=== PATIENT | male | born 1945 | race Caucasian/White ===

== ENCOUNTER → 2017-07-19 | Outpatient (CLI) | payer BC ==
[~2017-07-19] MED LIST: ACEASPCAF PO; ASPI81EC PO; ATOR10; Benadryl PO; CALCAVITD PO; CEPH500 PO; DALT10I SQ; GLIM2 PO; Glucosamine Sulfate PO; LANS30EC; MULVITMIND PO; OXYC15ER PO; TRAZ50; Zestril PO
== END ==
LOC: PLD 15:52 → LAB SHORT 15:52
DX: C44.311 Basal cell carcinoma of skin of nose (principal)
CPT/HCPCS: 88305

== ENCOUNTER 2018-03-07 07:19 | Day surgery (SDC) | payer BC ==
[~2018-03-07] VITALS: Ht 175.3 cm; Wt 72.2 kg
[~2018-03-07 07:19] MED LIST changes: -ATOR10; -LANS30EC; -TRAZ50
[2018-03-07] MEDS ORDERED: ATOR10 (08:04)
[2018-03-07] MEDS ORDERED: TRAZ50 (08:05)
[2018-03-07] MEDS ORDERED: LANS30EC (08:05)
== END 2018-03-07 10:01 | disposition home or self-care (01) ==
LOC: ORSCSDS 07:19
PROVIDERS: Internal Medicine Gastroenterology
PROC: 0DBK8ZX Excision of Ascending Colon, Via Natural or Artificial Opening Endoscopic, Diagnostic (ICD-10-PCS; principal; 2018-03-07 08:30)
DX: Z12.11 Encounter for screening for malignant neoplasm of colon (principal); D12.2 Benign neoplasm of ascending colon; K64.8 Other hemorrhoids; D64.9 Anemia, unspecified; Z87.891 Personal history of nicotine dependence; E11.8 Type 2 diabetes mellitus with unspecified complications; I10 Essential (primary) hypertension; E78.5 Hyperlipidemia, unspecified; E03.9 Hypothyroidism, unspecified; Z79.82 Long term (current) use of aspirin; Z79.899 Other long term (current) drug therapy
CPT/HCPCS: 82947; 88305; 93005; 93010; J7120

== ENCOUNTER → 2018-07-26 | Outpatient (CLI) | payer BC ==
[~2018-07-26] MED LIST changes: +ATOR10; +LANS30EC; +TRAZ50
== END | disposition home or self-care (01) ==
LOC: LAB SHORT 08:38 → PLD 08:38
DX: D22.61 Melanocytic nevi of right upper limb, including shoulder (principal); D48.5 Neoplasm of uncertain behavior of skin
CPT/HCPCS: 88305

== ENCOUNTER 2018-11-08 12:38 | Observation (INO) | payer BC ==
[~2018-11-08] VITALS: Ht 172.7 cm; Wt 72.6 kg
[~2018-11-08 12:38] MED LIST changes: -ATOR10; +ATOR10 PO
[2018-11-08 13:23] LABS: BASOPHILS ABSOLUTE AUTO 0.03 K/mm3 (0.00-0.23); BASOPHILS PERCENT AUTO 1 % (0-2); EOSINOPHILS ABSOLUTE AUTO 0.14 K/mm3 (0.00-0.68); EOSINOPHILS PERCENT AUTO 3 % (0-6); IMMATURE GRAN ABSOLUTE AUTO 0.01 K/mm3 (0.00-0.10); IMMATURE GRAN PERCENT AUTO 0 % (0-1); LYMPHOCYTES ABSOLUTE AUTO 1.76 K/mm3 (0.84-5.20); LYMPHOCYTES PERCENT AUTO 37 % (21-46); MONOCYTES ABSOLUTE AUTO 0.32 K/mm3 (0.16-1.47); MONOCYTES PERCENT AUTO 7 % (4-13); Mean Corpuscular HGB 32.3 pg (26.0-34.0); Mean Corpuscular HGB Conc 33.3 g/dL (31.5-36.5); Mean Corpuscular Volume 97 fL (80-100); Mean Platelet Volume 8.9 fL (9.1-12.4); NEUTROPHILS ABSOLUTE AUTO 2.52 K/mm3 (1.96-9.15); NEUTROPHILS PERCENT AUTO 53 % (41-73); Platelet Count 228 K/mm3 (150-400); RDW Coefficient Variation 11.9 % (11.7-14.2); Red Blood Cell Count 4.02 M/mm3 (4.30-5.90); White Blood Cell Count 4.78 K/mm3 (4.00-11.30)
[2018-11-08 13:47] LABS: Alanine Aminotransfer (ALT/SGP 20 U/L (12-78); Albumin, Blood 3.9 g/dL (3.4-5.0); Albumin/Globulin Ratio 1.2 (0.8-1.8); Alk Phos 40 U/L (50-136); Anion Gap 5 mmol/L (6-16); Aspartate Aminotrans (AST/SGOT 17 U/L (12-37); Bilirubin, Total 0.5 mg/dL (0.1-1.0); Blood Urea Nitrogen 16 mg/dL (8-24); Bun/Creatinine Ratio 14.5 (12.0-20.0); CO2, Blood 29 mmol/L (21-32); Calcium, Blood 8.9 mg/dL (8.5-10.1); Chloride, Blood 105 mmol/L (98-108); Globulin, Blood 3.2 g/dL (2.2-4.0); Glomerular Filtration Rate >60 (60-); Glucose, Blood 141 mg/dL (70-99); Potassium, Blood 4.2 mmol/L (3.5-5.5); Sodium, Blood 139 mmol/L (136-145); Total Protein, Blood 7.1 g/dL (6.4-8.2)
[2018-11-08] MEDS ORDERED: OXYB5 PO (15:17)
[2018-11-08] MEDS ORDERED: NORT25 PO (15:18)
[2018-11-08] MEDS ORDERED: Prinivil10 MG PO (16:07)
[2018-11-08] MEDS ORDERED: TEMA7.5 PO (16:07)
[2018-11-08] MEDS ORDERED: CELE100 PO (16:08)
[2018-11-08] MEDS ORDERED: Oxybutynin Chlo10 MG PO (16:30)
[2018-11-08] MEDS ORDERED: TEMA30 PO (16:47)
[2018-11-08] MEDS ORDERED: LO-DOSE ASPIRIN81 MG PO (16:48)
[2018-11-08] MEDS ORDERED: LANS30EC PO ×2 (16:49→20:13)
--- NOTE | 2018-11-08 17:51 | NUR ---
CALLED ED RECIEVED REPORT FROM DREA. PER REPORT PT ADMITTED FOR OBSERVATION. NO CURRENT C/O PAIN. PT HAS HAD CP FOR THE PAST THREE DAYS AND COLLAPSED AT WORK THIS AFTERNOON. AWAITING PT ARRIVAL FOR ASSESSMENT.
[2018-11-08 19:03] LABS: U Amphetamine Screen Not Detected; U Barbituate Screen Not Detected; U Benzodiazapine Screen DETECTED; U Buprenorphine Screen Not Detected; U Cannabinoids Screen Not Detected; U Cocaine Screen Not Detected; U Methadone Screen Not Detected; U Methamphetamine Screen Not Detected; U Opiates Screen Not Detected; U Oxycodone Screen Not Detected; U Phencyclidine Screen Not Detected; U Propoxyphene Screen Not Detected
--- NOTE | 2018-11-08 19:27 | NUR ---
ADMIT NOTE- PT ADMITTED THROUGH THE ED. ARRIVED VIA W/C NO S&S OF DISTRESS. PT ARRIVED AROUND SHIFT CHANGE, CALLED AND REQUESTED TELE BOX. BEDSIDE REPORT COMPLETE WITH NIGHT JASS AWAN
--- NOTE | 2018-11-08 19:59 | NUR ---
PT C/O HEADACHE. NO ORDERS FOR PRN TYLENOL ON EMAR. PLACED CALL TO HOSPITALIST FOR ORDER. KARUNA ORDERS 325 - 650 MG TYLENOL Q6H PRN. WILL ADMINISTER AND REASSESS ORDERED/PER PROTOCOL.
[2018-11-08] MEDS ORDERED: GRAPE SEED PO (20:14)
[2018-11-08] MEDS ORDERED: Amaryl1 MG PO (20:16)
[2018-11-08] MEDS ORDERED: Senna8.6 MG PO (20:16)
[2018-11-08] MEDS ORDERED: TRAZ100 PO (20:17)
[2018-11-08] MEDS ORDERED: CHOL10002 (20:18)
[2018-11-08] MEDS ORDERED: Natural Vita200 UNIT PO (20:19)
--- NOTE | 2018-11-09 07:11 | NUR ---
headache reduced but not eliminated with medication tried other interventions but dull ache remains as it has for some time, call light in reach, saline locked, room air
--- NOTE | 2018-11-09 09:09 | NUR ---
ASSUMED CARE OF PT- CALLED AND SPOKE TO DR HESS, PT ARRIVED ON MEDICAL FLOOR BP 208/133 CONCERNED THIS IS A LITTLE HIGH FOR PERMISSIVE HTN. PLACING NEW ORDERS NOW FOR BP AFFECTING MEDS, LABS AND NEW EKG. PT HAS NO CURRENT C/O PAIN BUT IS MILDLY CONFUSED FROM THE RECENT CVA.
--- NOTE | 2018-11-09 10:57 | NUR ---
CALLED DR HESS- PT C/O HEADACHE UNAFFECTED BY TYLENOL STATES HE TAKES EXCEDRIN MIGRAINE AT HOME FOR THEM WHEN HE GETS THEM. PT STATES LIGHT SENSITIVITY LEFT SIDE OF HIS HAED ABOVE THE LEFT EYE. PT DENIES NAUSEA. NEW ORDER RECIEVED, CALLED PHARMACY FOR MED TO BE SENT. PROVIDED ICE PACK THE PT STATED COLD SEEMS TO HELP WITH THE PAIN. WILL CTM AND MEDICATE WHEN MEDS ARRIVE.
--- NOTE | 2018-11-09 14:11 | NUR ---
Upon receiving a patient request for spiritual care from admission, I visited with patient and , Aye. Patient is in the discharge process and yet welcomed the spiritual care visit. Patient and spouse have a great outlook on life and the difficulties we all face. They showed no spiritual or emotional distress. I listened empathically, reinforced helpful attitudes and practices and normalized patient experience. Patient and Aye responded well.
--- NOTE | 2018-11-09 14:30 | NUR ---
DISCHARGE NOTE- PT DISCHARGED HOME, SPOUSE PRESENT FOR DISCHARGE TEACHING, NO C/O PAIN AT THE TIME OF DISCHARGE. PT WAS GIVEN VERBAL AND WRITTEN DISCHARGE INSTRUCTIONS AND ACKNOWLEDGED UNDERSTANDING OF THEM, QUESTIONS WERE ASKED AND ANSWERED, PT WAS PROVIDED WITH CONTACT INFO IF QUESTIONS SHOULD ARRISE ONCE HE GETS HOME. IV AND TELE DC'D PRIOR TO DISCHARGE, [facility] PLACED HOLTER MONITOR PTIOR TO DISCHARGE.
== END 2018-11-09 14:38 | disposition home or self-care (01) ==
LOC: ER 12:38 → MEDS 12:39
PROVIDERS: Emergency Medicine; ADMIT Hospitalist
DX: R55 Syncope and collapse (principal); R07.89 Other chest pain; E11.9 Type 2 diabetes mellitus without complications; I10 Essential (primary) hypertension; F32.9 Major depressive disorder, single episode, unspecified; K21.9 Gastro-esophageal reflux disease without esophagitis; Z79.899 Other long term (current) drug therapy; Z79.82 Long term (current) use of aspirin; Z87.891 Personal history of nicotine dependence
CPT/HCPCS: 36415; 80053; 82947; 84484; 85025; 93005; 93010; 93225; 93226; 96360; 99285-25; G0378; J7030

== ENCOUNTER 2019-04-16 11:41 | Emergency (ER) | payer MEDICARE ==
[~2019-04-16] VITALS: Ht 175.3 cm; Wt 72.6 kg
[~2019-04-16 11:41] MED LIST changes: +Amaryl1 MG PO; +CELE100 PO; +CHOL10002; +GRAPE SEED PO; +LANS30EC PO; +LO-DOSE ASPIRIN81 MG PO; +NORT25 PO; +Natural Vita200 UNIT PO; +OXYB5 PO; +Oxybutynin Chlo10 MG PO; +Prinivil10 MG PO; +Senna8.6 MG PO; +TEMA30 PO; +TEMA7.5 PO; +TRAZ100 PO
[2019-04-16] MEDS ORDERED: Voltaren100 GM TOP (13:02)
[2019-04-16] MEDS ORDERED: HYDR1TAB94 PO (13:02)
[2019-04-16] MEDS ORDERED: NAPR550 PO (13:02)
== END 2019-04-16 13:11 | disposition home or self-care (01) ==
LOC: ER 11:41
DX: S30.0XXA Contusion of lower back and pelvis, initial encounter (principal); W10.8XXA Fall (on) (from) other stairs and steps, initial encounter; Z79.899 Other long term (current) drug therapy; Z79.82 Long term (current) use of aspirin; E11.9 Type 2 diabetes mellitus without complications; Z87.891 Personal history of nicotine dependence
CPT/HCPCS: 72070; 72100; 73502; 99283-25

== ENCOUNTER 2020-06-02 13:49 | Emergency (ER) | payer MEDICARE ==
[~2020-06-02] VITALS: Ht 172.7 cm; Wt 72.6 kg
[~2020-06-02 13:49] MED LIST changes: +HYDR1TAB94 PO; +NAPR550 PO; +Voltaren100 GM TOP
[2020-06-02 19:01] LABS: Source, Urine Clean Catch
[2020-06-02 19:07] LABS: Appearance, Urine Clear (Clear); Bilirubin, Urine Neg (Neg); Blood, Urine Neg (Neg); Color, Urine Yellow (P-Yellow); Glucose Qualitative, Urine Neg (Neg); Ketones, Urine Neg (Neg); Leukocyte Esterase, Urine 3+ (Neg); Nitrite, Urine Neg (Neg); Protein, Urine Neg (Neg); Specific Gravity, Urine 1.015 (1.003-1.022); Urobilinogen, Urine NORM (Normal)
[2020-06-02 19:17] LABS: Bacteria Mod /hpf; Red Blood Cells, Urine 0-2 /hpf (0-2); Squamous Epithelial Cells Few /hpf (Few)
[2020-06-02] MEDS ORDERED: ZOLOFT100 M3 PO (19:17)
[2020-06-02] MEDS ORDERED: CEPH500 PO (19:26)
== END 2020-06-02 20:15 | disposition home or self-care (01) ==
LOC: ER 13:49
PROVIDERS: Physician Assistant
DX: S09.90XA Unspecified injury of head, initial encounter (principal); N39.0 Urinary tract infection, site not specified; R55 Syncope and collapse; E11.9 Type 2 diabetes mellitus without complications; K21.9 Gastro-esophageal reflux disease without esophagitis; F32.9 Major depressive disorder, single episode, unspecified; Z79.84 Long term (current) use of oral hypoglycemic drugs; Z79.82 Long term (current) use of aspirin; Z79.899 Other long term (current) drug therapy; Z87.891 Personal history of nicotine dependence; W01.10XA Fall on same level from slipping, tripping and stumbling with subsequent striking against unspecified object, initial encounter
CPT/HCPCS: 70450; 81001; 87077; 87086; 87186; 99284-25; A9270-GY

== ENCOUNTER 2022-01-20 10:59 | Day surgery (SDC) | payer MEDICARE ==
[~2022-01-20] VITALS: Ht 175.3 cm; Wt 64.2 kg
[~2022-01-20 10:59] MED LIST changes: +ALPR.25; +ASPI81CH PO; +Azopt10 ML; +CELE200 PO; +NORT10 PO; +PERIDEX15 ML; +REVATIO20 MG; +SERT100 PO; +TERB250; +ZOLOFT100 M3 PO
--- NOTE | 2022-01-20 13:58 | NUR ---
01/20/22 [id number] CARMEN MCGEE LATE ENTRY: DR MENDOZA ORDERED A 12 LEAD EKG DUE TO THE 3 LEAD ECG IN ROOM SHOWING ARTIFACT THAT LOOKED LIKE POSSIBLE ST ELEVATIONS AFER THE FIRST DOSE OF PROPOFOL 40MG HAD BEEN GIVEN. AFTER EKG 12 LEAD CONFIRMED THAT IT WAS SAFE TO PROCEED BY DR MENDOZA, SEDATION STARTED AGAIN. PT HAD LOW BP WITH A MEAN OF 60 AND ABOVE THROUGHOUT. PT IS HISTORICALLY BRADYCARDIC AND MAINTAINED HR AT BASELINE. DR MENDOZA WAS AWARE OF BP AND ORDERED LOW AND SLOW PROPOFOL DOSES WITH CLOSE MONITORING. NO OTHER INTERVENTIONS WERE INDICATED. PT WOKE FROM SEDATION FEELING GREAT, STEADY ON HIS FEET AND VITALS WERE BACK TO BASELINE UPON DC.
== END 2022-01-20 13:40 | disposition home or self-care (01) ==
LOC: ORSCSDS 10:59
PROVIDERS: Internal Medicine Gastroenterology
PROC: 0DJD8ZZ Inspection of Lower Intestinal Tract, Via Natural or Artificial Opening Endoscopic (ICD-10-PCS; principal; 2022-01-20 12:00)
DX: Z12.11 Encounter for screening for malignant neoplasm of colon (principal); K63.5 Polyp of colon; Z86.010 Personal history of colon polyps; K64.8 Other hemorrhoids; K21.9 Gastro-esophageal reflux disease without esophagitis; I10 Essential (primary) hypertension; E11.9 Type 2 diabetes mellitus without complications; E78.5 Hyperlipidemia, unspecified; E55.9 Vitamin D deficiency, unspecified; F32.A Depression, unspecified; Z79.899 Other long term (current) drug therapy
CPT/HCPCS: 82947; 88305; J2704; J7120

== ENCOUNTER 2024-04-29 14:46 | Emergency (ER) | payer OTHER ==
[~2024-04-29] VITALS: Ht 172.7 cm; Wt 63.5 kg
[~2024-04-29 14:46] MED LIST changes: +Alph-E-Mixed400 UNIT PO; +MULTI-VITAMIN1 EAC2 PO; +Prinivil10 MG; +VITAMIN E PO; +Vitamin D1000 UNI1 PO
[2024-04-29 15:15] VITALS: BP 163/70
[2024-04-29 16:38] LABS: BASOPHILS ABSOLUTE AUTO 0.02 K/mm3 (0.00-0.23); BASOPHILS PERCENT AUTO 0 % (0-2); EOSINOPHILS ABSOLUTE AUTO 0.03 K/mm3 (0.00-0.68); EOSINOPHILS PERCENT AUTO 0 % (0-6); Hematocrit 36.9 % (37.0-53.0); Hemoglobin 12.9 g/dL (13.5-17.5); IMMATURE GRAN ABSOLUTE AUTO 0.02 K/mm3 (0.00-0.10); IMMATURE GRAN PERCENT AUTO 0 % (0-1); LYMPHOCYTES ABSOLUTE AUTO 1.64 K/mm3 (0.84-5.20); LYMPHOCYTES PERCENT AUTO 21 % (21-46); MONOCYTES ABSOLUTE AUTO 0.64 K/mm3 (0.16-1.47); MONOCYTES PERCENT AUTO 8 % (4-13); Mean Corpuscular HGB 33.3 pg (26.0-34.0); Mean Corpuscular Volume 95 fL (80-100); Mean Platelet Volume 8.5 fL (9.1-12.4); NEUTROPHILS ABSOLUTE AUTO 5.62 K/mm3 (1.96-9.15); NEUTROPHILS PERCENT AUTO 70 % (41-73); Platelet Count 274 K/mm3 (150-400); RDW Standard Deviation 45.7 fL (35.1-46.3); Red Blood Cell Count 3.87 M/mm3 (4.30-5.90); White Blood Cell Count 7.97 K/mm3 (4.00-11.30)
[2024-04-29 17:04] LABS: Albumin, Blood 3.3 g/dL (3.4-5.0); Albumin/Globulin Ratio 0.8 (0.8-1.8); Bilirubin, Total 0.6 mg/dL (0.1-1.0); Bun/Creatinine Ratio 11.1 (12.0-20.0); Calcium, Blood 8.6 mg/dL (8.5-10.1); Creatinine, Blood 0.81 mg/dL (0.60-1.20); Globulin, Blood 4.2 g/dL (2.2-4.0); Total Protein, Blood 7.5 g/dL (6.4-8.2)
[2024-04-29] MEDS ORDERED: Indomethacin 25 MG Cap PO ONE (17:30)
[2024-04-29] MEDS ORDERED: HYDROcodone 5-APAP 325 TAB PO ONE (17:30)
[2024-04-29] MEDS ORDERED: PredniSONE 20 MG Tab PO ONE (17:30)
[2024-04-29] MEDS ORDERED: HYDR1TAB94 PO (18:10)
[2024-04-29] MEDS ORDERED: PRED20 PO (18:10)
[2024-04-29] MEDS ORDERED: Indomethacin50 MG PO (18:10)
== END 2024-04-29 18:01 | disposition home or self-care (01) ==
LOC: ER 14:46
PROVIDERS: Emergency Medicine
DX: M10.9 Gout, unspecified (principal); E11.9 Type 2 diabetes mellitus without complications; K21.9 Gastro-esophageal reflux disease without esophagitis; Z79.899 Other long term (current) drug therapy; Z79.82 Long term (current) use of aspirin; Z79.52 Long term (current) use of systemic steroids; Z87.891 Personal history of nicotine dependence
CPT/HCPCS: 73110; 73130; 80053; 84550; 85025; 99283-25; A9270; J7512